=== PATIENT | female | born 1975 | race African-American/Black ===

== ENCOUNTER 2016-10-17 11:11 | Emergency (ER) | payer OTHER ==
[2016-10-17 11:21] VITALS: BMI 30.2
--- NOTE | 2016-10-17 11:37 | PDOC ---
History of Present Illness - General History Source: Patient Exam Limitations: No Limitations - History of Present Illness Initial Comments: 10/17/16 11:50 The patient is a year-old woman, M1, approximately 16 weeks , with a significant past medical history of asthma and preclampsia (currently taking Asprin 81mg prophylactically) who was sent from the [facility] to the emergency department for further evaluation of an abnormal outpatient ultrasound. As per patient, she was at her scheduled ultrasound, when she was informed by the Diagnostic Center that the baby "did not have enough fluid". As per patient, she denies any abdominal pain, nausea, vomiting, changes in bowel/ bladder habits, chest pain, cough, shortness of breath, lightheadedness, dizzinesses, palpitations, headaches, visual changes. She also notes that she has been experiencing discomfort upon urination and has had a history of UTIs and yeast infections during her prior pregnancies. She believes she currently has a yeast infection, as she noted some thick white vaginal discharge this morning. She denies hematuria, urinary frequency and urgency, flank pain, vaginal bleeding Allergies: No Known Drug Allergies Past Surgical History: Caesarian Section Social History: She admits to tobacco, EtOH and recreational drug use, but has stopped since she found out she was . 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 <Silvana Flowers - Last Filed: 10/17/16 12:18> - General History Source: Patient, Old Records Exam Limitations: No Limitations <Jennifer Thomas - Last Filed: 10/17/16 14:02> - General Chief Complaint: Pain Stated Complaint: 16 WKS , PAIN Time Seen by Provider: 10/17/16 11:35 Past History <Silvana Flowers - Last Filed: 10/17/16 12:18> - Past Medical History Asthma: Yes Other medical history: sickle cell triat, hx of pre eclampsia - Psycho/Social/Smoking Cessation Hx Anxiety: No Suicidal Ideation: No Smoking History: Never smoked Have you smoked in the past 12 months: Yes Number of Cigarettes Smoked Daily: 2 If you are a former smoker, when did you quit?: 6 weeks ago Information on smoking cessation initiated: Yes 'Breaking Loose' booklet given: 10/17/16 Hx Alcohol Use: No Drug/Substance Use Hx: No Substance Use Type: None <Jennifer Thomas - Last Filed: 10/17/16 14:02> - Past Medical History Allergies/Adverse Reactions: Allergies Allergy/AdvReac Type Severity Reaction Status Date / Time No Known Allergies Allergy Verified 10/17/16 11:11 Home Medications: Ambulatory Orders Aspirin [ASA -] 81 mg PO DAILY 10/17/16 Pnv No.122/Iron/Folic Acid [ Multi Tablet] 1 each PO DAILY 10/17/16 Terconazole [Terazol 7] 45 gm VG HS #3 cream.appl 10/17/16 Review of Systems - Review of Systems Able to Perform ROS?: Yes Comments:: 10/17/16 11:50 CONSTITUTIONAL: Absent: fever, chills, diaphoresis, generalized weakness, malaise, loss of appetite HEENT: Absent: rhinorrhea, nasal congestion, throat pain, throat swelling, difficulty swallowing, mouth swelling, ear pain, eye pain, visual Changes CARDIOVASCULAR: Absent: chest pain, syncope, palpitations, irregular heart rate , lightheadedness, peripheral edema RESPIRATORY: Absent: cough, shortness of breath, dyspnea with exertion, orthopnea, wheezing, stridor, hemoptysis GASTROINTESTINAL:Absent: abdominal pain, abdominal distension, nausea, vomiting , diarrhea, constipation, melena, hematochezia GENITOURINARY: Present: Dysuria. Vaginal discharge. Absent: frequency, urgency , hesitancy, hematuria, flank pain, genital pain MUSCULOSKELETAL: Absent: myalgia, arthralgia, joint swelling SKIN: Absent: rash, itching, pallor HEMATOLOGIC/IMMUNOLOGIC: Absent: easy bleeding, easy bruising, lymphadenopathy, frequent infections ENDOCRINE:Absent: unexplained weight gain, unexplained weight loss, heat intolerance, cold intolerance NEUROLOGIC: Absent: headache, focal weakness or paresthesias, dizziness, unsteady gait, seizure, mental status changes, bladder or bowel incontinence PSYCHIATRIC: Absent: anxiety, depression, suicidal or homicidal ideation, hallucinations <Silvana Flowers - Last Filed: 10/17/16 12:18> *Physical Exam - Vital Signs Last Vital Signs Temp Pulse Resp BP Pulse Ox 98.6 F 108 H 18 143/86 100 10/17/16 11:15 10/17/16 11:15 10/17/16 11:15 10/17/16 11:15 10/17/16 11:15 - Physical Exam Comments: 10/17/16 11:50 GENERAL: Well developed, well nourished. Awake and alert. No acute distress. HEENT: Normocephalic, atraumatic. PERRLA, EOMI. No conjunctival pallor. Sclera are non-icteric. Moist mucous membranes. Oropharynx is clear. NECK: Supple. Full ROM. No JVD. CARDIOVASCULAR: Regular rate and rhythm. No murmurs, rubs, or gallops. PULMONARY: No evidence of respiratory distress. Lungs clear to auscultation bilaterally. No wheezing, rales or rhonchi. ABDOMINAL: Soft. Non-tender. Non-distended. No rebound or guarding. No organomegaly. Normoactive bowel sounds. PELVIC: There is thick white discharge with foul odor in the vault. No CMT. No adnexal masses. MUSCULOSKELETAL: Normal range of motion at all joints. No bony deformities or tenderness. No CVA tenderness. EXTREMITIES: No cyanosis. No clubbing. No edema. No calf tenderness. SKIN: Warm and dry. Normal capillary refill. No rashes. No jaundice. NEUROLOGICAL: Alert, awake, appropriate. Cranial nerves 2-12 intact. Normal speech. PSYCHIATRIC: Cooperative. Good eye contact. Appropriate mood and affect. <Silvana Flowers - Last Filed: 10/17/16 12:18> - Vital Signs Last Vital Signs Temp Pulse Resp BP Pulse Ox 98.6 F 108 H 18 143/86 100 10/17/16 11:15 10/17/16 11:15 10/17/16 11:15 10/17/16 11:15 10/17/16 11:15 <Jennifer Thomas - Last Filed: 10/17/16 14:02> ED Treatment Course - LABORATORY CBC & Chemistry Diagram: 10/17/16 11:50 10/17/16 11:50 <Silvana Flowers - Last Filed: 10/17/16 12:18> - LABORATORY CBC & Chemistry Diagram: 10/17/16 11:50 10/17/16 11:50 <Jennifer Thomas - Last Filed: 10/17/16 14:02> Medical Decision Making - Medical Decision Making 10/17/16 12:21 Spoke to [place] Nurse Practitioner of Diagnostic center. Case was discussed. Will page out Dr. Jhoan Benson. <Silvana Flowers - Last Filed: 10/17/16 12:18> - Medical Decision Making 10/17/16 12:46 41-year-old female at approximately 16 weeks' referred to the emergency department from ultrasound as she has next and no amniotic fluid on ultrasound exam. Differential diagnosis includes but is not limited to: Premature rupture of membranes, oligohydramnios, yeast infection, UTI. I have spoken to inbound call center representative longwall machine operator helper, Zuhair, who stated that she likely has PROM and since the is <20 weeks, there is no intervention at this time. His recommendation is to discharge home and follow-up with [facility] tomorrow am. I have explained this with the patient. I have also prescribed terazol for the yeast infection. 10/17/16 14:02 <Jennifer Thomas - Last Filed: 10/17/16 14:02> *DC/Admit/Observation/Transfer - Attestations Scribe Attestion: 10/17/16 11:50 Documentation prepared by Silvana Flowers, acting as medical research associate for Jennifer Thomas MD. <Silvana Flowers - Last Filed: 10/17/16 12:18> - Discharge Dispostion Admit: No - Attestations Physician Attestion: 10/17/16 12:55 I, Dr. Jennifer Thomas, attest that the scribes documentation that appears above has been prepared under my direction and personally reviewed by me in its entirety. I confirmed that the note above accurately reflects all work, treatment, procedures, and medical decision-making performed by me. <Jennifer Thomas - Last Filed: 10/17/16 14:02> Diagnosis at time of Disposition: Vaginal yeast infection, Premature rupture of membranes, Oligohydramnios antepartum - Discharge Dispostion Disposition: HOME Condition at time of disposition: Stable - Prescriptions Prescriptions: Terconazole [Terazol 7] 45 gm VG HS #3 cream.appl - Patient Instructions Printed Discharge Instructions: DI for Oligohydramnios Additional Instructions: Please follow-up with your heavy equipment operator apprentice in the morning. You also have a yeast infection and are being prescribed terazol--one applicatorful in the vagina each night for the next 7 days. Return to the ED if your symptoms persist, worsen or new symptoms arise.
[2016-10-17 12:06] LABS: URINE APPEARANCE CLEAR; URINE BILIRUBIN NEGATIVE (NEGATIVE); URINE BLOOD NEGATIVE (NEGATIVE); URINE COLOR STRAW; URINE GLUCOSE (UA) NEGATIVE (NEGATIVE); URINE KETONE NEGATIVE (NEGATIVE); URINE LEUK ESTERASE 2+ (NEGATIVE); URINE NITRITE NEGATIVE (NEGATIVE); URINE PROTEIN NEGATIVE (NEGATIVE); URINE UROBILINOGEN NEGATIVE E.U./dl (0.2-1.0)
[2016-10-17 12:11] LABS: BASOPHIL 0.4 % (0-2.0); EOSINOPHIL 0.8 % (0-4.5); MCH 29.4 pg (25.7-33.7); MCHC 34.1 g/dl (32.0-36.0); MEAN CELL VOLUME 86.1 fl (80-96); MEAN PLT VOLUME 6.9 fl (7.5-11.1); NEUTROPHILS 73.6 % (42.8-82.8); PLATELET COUNT 398 K/MM3 (134-434); RDW 13.4 % (11.6-15.6); WHITE BLOOD COUNT 10.9 K/mm3 (4.0-10.0)
[2016-10-17 12:38] LABS: URINE WBC 1 /hpf (3-5)
[2016-10-17 12:42] LABS: ALBUMIN 3.3 g/dl (3.4-5.0); ALK PHOS 51 U/L (45-117); ANION GAP 13 (8-16); CALCIUM 9.1 mg/dL (8.5-10.1); CO2 24 mmol/L (21-32); COCKROFT - GAULT 228.9135; CREATININE 0.4 mg/dL (0.55-1.02); GLUCOSE,RANDOM 77 mg/dL (74-106); MAGNESIUM 2.1 mg/dL (1.8-2.4); PHOSPHOROUS 3.9 mg/dL (2.5-4.9); SGOT/AST 13 U/L (15-37); SGPT/ALT 18 U/L (12-78); TOT PROT 7.1 g/dl (6.4-8.2)
[2016-10-17 12:43] LABS: URINE RBC <1 /hpf (0-3)
[2016-10-17 12:53] LABS: BILIRUBIN,TOTAL 0.4 mg/dL (0.2-1.0)
[2016-10-17 14:27] VITALS: BP 114/64; PULSE 107; TEMP 98
== END 2016-10-17 14:28 | disposition home or self-care (01) ==
LOC: JER 11:11
DX: O98.812 Other maternal infectious and parasitic diseases complicating pregnancy, second trimester (principal); B37.89 Other sites of candidiasis; O42.912 Preterm premature rupture of membranes, unspecified as to length of time between rupture and onset of labor, second trimester; Z3A.16 16 weeks gestation of pregnancy
CPT/HCPCS: 36415; 80053; 81003; 81015; 83735; 84100; 85025; 99284-25

== ENCOUNTER 2016-12-16 22:33 | Emergency (ER) | payer OTHER ==
[2016-12-16 22:40] VITALS: BMI 34.3
--- NOTE | 2016-12-16 23:17 | PDOC ---
History of Present Illness - General History Source: Patient Exam Limitations: No Limitations - History of Present Illness Initial Comments: 12/16/16 23:18 Patient is a 41F with a PMH significant for asthma, HTN, preeclampia, and placenta previa presenting here with anxiety. She reports that her mother today, and she broke down in the street when she found out. She was approached by paramedics who brought her into the hospital for tachycardia. Associated symptoms include nausea. She reports that her is "high risk " because of "fluid around the baby". Complications for this include the need for IV fluids for dehydration secondary to decreased PO intake and consistent tachycardia to the 110s. She denies vomiting, decreased PO intake, vaginal bleeding, chest pain, shortness of breath, abdominal pain, diaphoresis, dysuria, constipation, changes in vision and headache. <Jose Alberto Ramirez - Last Filed: 12/17/16 00:16> <Felipe Villalobos - Last Filed: 12/17/16 01:21> - General Chief Complaint: Psychiatric Stated Complaint: ANXIETY,6 MOS ,LOW FLUID Time Seen by Provider: 12/16/16 22:41 Past History - Past Medical History Asthma: Yes - Psycho/Social/Smoking Cessation Hx Anxiety: No Suicidal Ideation: No Smoking History: Unknown if ever smoked Have you smoked in the past 12 months: No Number of Cigarettes Smoked Daily: 2 If you are a former smoker, when did you quit?: 6 weeks ago Information on smoking cessation initiated: No 'Breaking Loose' booklet given: 10/17/16 Hx Alcohol Use: No Drug/Substance Use Hx: No Substance Use Type: None <Jose Alberto Ramirez - Last Filed: 12/17/16 00:16> <Felipe Villalobos - Last Filed: 12/17/16 01:21> - Past Medical History Allergies/Adverse Reactions: Allergies Allergy/AdvReac Type Severity Reaction Status Date / Time No Known Allergies Allergy Verified 12/16/16 22:37 Home Medications: Ambulatory Orders Aspirin [ASA -] 81 mg PO DAILY 10/17/16 Pnv No.122/Iron/Folic Acid [ Multi Tablet] 1 each PO DAILY 10/17/16 Terconazole [Terazol 7] 45 gm VG HS #3 cream.appl 10/17/16 Review of Systems - Review of Systems Constitutional: No: Chills, Fever HEENTM: No: Blurred Vision, Recent change in vision Respiratory: No: Shortness of Breath Cardiac (ROS): No: Chest Pain, Lightheadedness ABD/GI: Yes: Nausea. No: Constipated, Diarrhea, Vomiting : Yes: Frequency. No: Dysuria Integumentary: No: Rash, Sweating Neurological: No: Headache, Dizziness Psychiatric: Yes: Anxiety <Jose Alberto Ramirez - Last Filed: 12/17/16 00:16> *Physical Exam - Vital Signs Last Vital Signs Temp Pulse Resp BP Pulse Ox 140 H 22 138/120 100 12/16/16 22:38 12/16/16 22:38 12/16/16 22:38 12/16/16 22:38 - Physical Exam Comments: 12/16/16 23:26 Constitutional: Upset but consolable, well nourished, Head: Normocephalic, atraumatic CV:RRR, no murmurs rubs or gallops Resp: Normal work of breathing, clear to auscultation bilaterally Abdomen: Gravid uterus, soft, nontender to palpation Ext: 2+ pulses in all extremities, no edema Neuro: No focal neuro deficits, alert, oriented <Jose Alberto Ramirez - Last Filed: 12/17/16 00:16> - Vital Signs Last Vital Signs Temp Pulse Resp BP Pulse Ox 140 H 22 138/120 100 12/16/16 22:38 12/16/16 22:38 12/16/16 22:38 12/16/16 22:41 <Felipe Villalobos - Last Filed: 12/17/16 01:21> ED Treatment Course - ADDITIONAL ORDERS Additional order review: Laboratory Results 12/17/16 00:15 Urine Color Straw Urine Appearance Slcloudy Urine pH 6.0 Urine Protein 1+ H Urine Glucose (UA) Negative Urine Ketones Negative Urine Blood 1+ H Urine Nitrite Negative Urine Bilirubin Negative Urine Urobilinogen Negative Ur Leukocyte Esterase 2+ H <Felipe Villalobos - Last Filed: 12/17/16 01:21> Medical Decision Making - Medical Decision Making 12/17/16 00:13 Patient is a 41 at 6 months and a history of preeclampsia requiring an emergency here today complaining of anxiety. Initially very upset, but has calmed down since. Vital signs show tachycardia, otherwise normal. I believe that she's having a reasonable reaction to her mother dying today. Will do an EKG and UA, then send upstairs for monitoring. Patient presented and signed out to Dr Villalobos, who assumed care. <Jose Alberto Ramirez - Last Filed: 12/17/16 00:16> *DC/Admit/Observation/Transfer - Attestations Physician Attestion: 12/17/16 00:18 I, Dr. Jose Alberto Ramirez, attest that this document has been prepared under my direction and personally reviewed by me in its entirety. I further attest, that it accurately reflects all work, treatment, procedures and medical decision -making performed by me. <Jose Alberto Ramirez - Last Filed: 12/17/16 00:16> <Felipe Villalobos - Last Filed: 12/17/16 01:21> Diagnosis at time of Disposition: Anxiety Qualifiers: Weeks of gestation: 24 weeks Qualified Code(s): Z3A.24 - 24 weeks gestation of - Discharge Dispostion Disposition: HOME Condition at time of disposition: Stable - Referrals Referrals: [facility], one day [Other] - Patient Instructions Printed Discharge Instructions: DI for Anxiety -- Adult, Pre-eclampsia
[2016-12-17 00:25] LABS: URINE APPEARANCE SLCLOUDY; URINE BILIRUBIN NEGATIVE (NEGATIVE); URINE COLOR STRAW; URINE GLUCOSE (UA) NEGATIVE (NEGATIVE); URINE KETONE NEGATIVE (NEGATIVE); URINE NITRITE NEGATIVE (NEGATIVE); URINE UROBILINOGEN NEGATIVE E.U./dl (0.2-1.0)
[2016-12-17 00:26] LABS: URINE BLOOD 1+ (NEGATIVE); URINE LEUK ESTERASE 2+ (NEGATIVE); URINE PROTEIN 1+ (NEGATIVE)
[2016-12-17 00:28] LABS: CALCIUM OXALATE CRYSTALS RARE /hpf (NONE SEEN); URINE BACTERIA RARE /hpf (NONE SEEN); URINE RBC <1 /hpf (0-3); URINE WBC 2 /hpf (3-5)
--- NOTE | 2016-12-17 01:19 | PDOC ---
Attending Attestation - Resident Resident Name: Jose Alberto Ramirez - ED Attending Attestation I have performed the following: I have examined & evaluated the patient, The case was reviewed & discussed with the resident, I agree w/resident's findings & plan, Exceptions are as noted - HPI HPI: 12/17/16 01:25 41 y/o female withhx/o pre-eclampsia, , at 24 weeks gestations bib ems for anxiety and tachycardia after her mothers on the day of arrival. pt denies suicidal/homocidal ideations. pt denies abdominal pain/lower extremity edema/nausea/vomiting/fever/chills/vaginal bleeding/leakage of fluid. - Physicial Exam PE: 12/17/16 01:26 Patient is awake and alert, anxious appearing, tachycardic and initial evaluation, with a gravid uterus with fundus palpable approximately 5 cm above the umbilicus. - Medical Decision Making 12/17/16 01:26 41-year-old female with history of preeclampsia, 6 para 4 at 24 weeks gestation presents to the ER by EMS for an acute anxiety attack precipitated by the knowledge of the passing of her mother. Patient denies suicidal/homicidal ideations. After period of observation, patient is awake and alert, with a heart rate of 109. Urinalysis reveals 1+ proteinuria. Blood pressure is noted to be 120/90 which patient states is her baseline. I do not suspect preeclampsia at this time. Patient has refused monitoring in labor and delivery and will follow-up with [facility] in 24 hours scheduled. <Felipe Villalobos - Last Filed: 12/17/16 01:25> - Medical Decision Making 12/17/16 01:31 Documentation prepared by Rufino Palumbo, acting as resident medical officer for Felipe Villalobos MD. <Rufino Palumbo - Last Filed: 12/17/16 01:32> Heart Score/ECG Review - ECG Intrepretation Comment:: 12/17/16 01:29 Vent Rate: 109 bpm IMPRESSION: Sinus tachycardia. Possible left atrial enlargement. <Rufino Palumbo - Last Filed: 12/17/16 01:32>
[2016-12-17 01:49] VITALS: BP 124/89; PULSE 107
--- NOTE | 2016-12-18 10:38 | EKG ---
Test Reason : Blood Pressure : / mmHG Vent. Rate : 109 BPM Atrial Rate : 109 BPM P-R Int : 126 ms QRS Dur : 082 ms QT Int : 332 ms P-R-T Axes : 058 053 021 degrees QTc Int : 447 ms SINUS TACHYCARDIA POSSIBLE LEFT ATRIAL ENLARGEMENT BORDERLINE ECG NO PREVIOUS ECGS AVAILABLE Confirmed by JEF HSIEH MD ([id number]) on 12/18/2016 10:37:38 AM Referred By: Confirmed By:JEF HSIEH MD
== END 2016-12-17 01:37 | disposition home or self-care (01) ==
LOC: JER 22:33
DX: O99.342 Other mental disorders complicating pregnancy, second trimester (principal); F41.8 Other specified anxiety disorders; F43.0 Acute stress reaction; Z63.4 Disappearance and death of family member; Z3A.24 24 weeks gestation of pregnancy
CPT/HCPCS: 81003; 81015; 93005; 93010; 99282-25

== ENCOUNTER 2023-06-11 12:38 | Emergency (ER) | payer OTHER ==
[2023-06-11] MEDS ORDERED: morphine CARPU-JECT 4 MG/1 ML DISP.SYRIN IVPUSH ONE ×2 (13:14→15:03)
[2023-06-11] MEDS ORDERED: ONDANSETRON 4 MG/2 ML VIAL IVPUSH ONE (13:15)
[2023-06-11 13:19] VITALS: BP 157/101; PULSE 93; RESP 18; TEMP 99.2
[2023-06-11] MEDS ORDERED: ONDANSETRON 4 MG TABLET PO ONE (13:21)
[2023-06-11] MEDS ORDERED: morphine CARPU-JECT 2 MG/1 ML DISP.SYRIN IM ONE (13:21)
[2023-06-11] MEDS ORDERED: morphine SULFATE 4 MG/ML VIAL ONE ×2 (13:23→15:17)
[2023-06-11] MEDS ORDERED: ONDANSETRON 8 MG TABLET (FP) PO ONE (13:23)
[2023-06-11 14:28] LABS: EPI CELLS 19 /uL (0-25.1); HYALINE CASTS 0 /uL (0-3.1); URINE APPEARANCE CLEAR; URINE BACTERIA 316 /uL (0-1359); URINE BILIRUBIN NEGATIVE (NEGATIVE); URINE COLOR YELLOW; URINE GLUCOSE (UA) NEGATIVE (NEGATIVE); URINE KETONE NEGATIVE (NEGATIVE); URINE LEUK ESTERASE TRACE (NEGATIVE); URINE NITRITE NEGATIVE (NEGATIVE); URINE PROTEIN NEGATIVE (NEGATIVE); URINE RBC 2 /uL (0-23.9); URINE UROBILINOGEN 0.2 mg/dL (0.2-1.0); URINE WBC 13 /uL (0-25.8)
[2023-06-11 14:38] LABS: BASO % 1.2 % (0-2.0); EOS % 2.3 % (0-4.5); HEMATOCRIT 42.6 % (32.4-45.2); HEMOGLOBIN 14.2 GM/dL (10.7-15.3); LYMPH % 29.4 % (8-40); MCH 29.1 pg (25.7-33.7); MCHC 33.4 g/dl (32.0-36.0); MONO % 11.6 % (3.8-10.2); NEUT % 55.5 % (42.8-82.8); PLATELET COUNT 436 10^3/uL (134-434); RDW 13.6 % (11.6-15.6); WHITE BLOOD COUNT 6.6 K/mm3 (4.0-10.0)
[2023-06-11 14:43] LABS: INR 1.09 (0.83-1.09); PROTHROMBIN TIME (PATIENT) 12.6 SEC (9.7-13.0)
[2023-06-11 14:55] LABS: POTASSIUM 4.1 mmol/L (3.5-5.1)
[2023-06-11 14:57] LABS: CALCIUM 9.3 mg/dL (8.5-10.1)
[2023-06-11 14:58] LABS: ALBUMIN 3.9 g/dl (3.4-5.0); BLOOD UREA NITROGEN 8.6 mg/dL (7-18); MAGNESIUM 2.2 mg/dL (1.8-2.4)
[2023-06-11 15:01] LABS: CREATININE 0.6 mg/dL (0.55-1.3)
[2023-06-11 15:03] LABS: BILIRUBIN,TOTAL 0.4 mg/dL (0.2-1)
[2023-06-11] MEDS ORDERED: KETOROLAC TROMETHAMINE 15 MG/ML VIAL IVPUSH ONE (18:42)
[2023-06-11] MEDS ORDERED: KETOROLAC TROMETHAMINE 15 MG/ML VIAL ONE (18:59)
== END 2023-06-11 19:09 | disposition home or self-care (01) ==
LOC: JER 12:38
PROC: 3E0333Z Introduction of Anti-inflammatory into Peripheral Vein, Percutaneous Approach (ICD-10-PCS; principal; 2023-06-11)
PROC: 3E033GC Introduction of Other Therapeutic Substance into Peripheral Vein, Percutaneous Approach (ICD-10-PCS; 2023-06-11)
PROC: 3E023GC Introduction of Other Therapeutic Substance into Muscle, Percutaneous Approach (ICD-10-PCS; 2023-06-11)
DX: R10.2 Pelvic and perineal pain (principal); R10.31 Right lower quadrant pain; R10.32 Left lower quadrant pain; R45.7 State of emotional shock and stress, unspecified; K59.00 Constipation, unspecified
CPT/HCPCS: 36415; 74177-TC; 76830-TC; 80053; 81003; 83735; 84703; 85025; 85610; 86850; 86900; 86901; 87086; 99285-25; Q9967

== ENCOUNTER 2023-12-12 13:04 | Emergency (ER) | payer OTHER ==
[2023-12-12 14:13] VITALS: RESP 18; BMI 31.8
[2023-12-12] MEDS ORDERED: ACETAMINOPHEN 500 MG TABLET (FP) ONE (15:03)
[2023-12-12] MEDS ORDERED: KETOROLAC TROMETHAMINE 30 MG/1 ML VIAL ONE (15:03)
[2023-12-12] MEDS: SODIUM CHLORIDE 0.9% 500 ML INFUS.BAG IV ONE (15:08)
[2023-12-12] MEDS: KETOROLAC TROMETHAMINE 30 MG/1 ML VIAL IVPUSH ONE (15:09)
[2023-12-12] MEDS: ACETAMINOPHEN 500 MG TABLET (FP) PO ONE (15:09)
[2023-12-12 15:18] LABS: THROAT:GRP A STREP NOT DETECTED (NOTDETECTED)
[2023-12-12 15:23] LABS: PH,URINE 7.5 (5.0-8.0); URINE APPEARANCE CLEAR; URINE BILIRUBIN NEGATIVE (NEGATIVE); URINE COLOR YELLOW; URINE GLUCOSE (UA) NEGATIVE (NEGATIVE); URINE KETONE NEGATIVE (NEGATIVE); URINE LEUK ESTERASE NEGATIVE (NEGATIVE); URINE NITRITE NEGATIVE (NEGATIVE); URINE PROTEIN NEGATIVE (NEGATIVE); URINE UROBILINOGEN 0.2 mg/dL (0.2-1.0)
[2023-12-12 15:25] LABS: HCG,QUALITATIVE URINE Negative
[2023-12-12 15:38] VITALS: BP 176/101; PULSE 93; TEMP 99
== END 2023-12-12 16:59 | disposition home or self-care (01) ==
LOC: JER 13:04
PROC: 3E0333Z Introduction of Anti-inflammatory into Peripheral Vein, Percutaneous Approach (ICD-10-PCS; principal; 2023-12-12)
DX: U07.1 COVID-19 (principal); R51.9 Headache, unspecified; M79.10 Myalgia, unspecified site; R05.9 Cough, unspecified; J02.9 Acute pharyngitis, unspecified; R68.83 Chills (without fever); R35.0 Frequency of micturition; R42 Dizziness and giddiness; E86.0 Dehydration; R09.81 Nasal congestion
CPT/HCPCS: 0241U-QW; 81003; 84703; 87086; 87651; 99284-25